=== PATIENT | female | born 1955 | race African-American/Black ===

== ENCOUNTER 2019-04-29 12:35 | Emergency (ER) | payer MEDICARE, OTHER ==
[~2019-04-29] VITALS: Ht 162.6 cm; Wt 55.0 kg
[2019-04-29] MEDS ORDERED: ONDANSETRON HCL 4MG/2ML INJ IV STA (17:24)
[2019-04-29] MEDS ORDERED: MORPHINE SULFATE 4 MG/ML CPJ (NOT FOR IM USE) IV STA (17:24)
[2019-04-29] MEDS ORDERED: ASPIRIN 81MG TABLET PO ONE (17:30)
[2019-04-29 17:35] LABS: BASOPHILS % 0.7 % (0.0-2.0); EOSINOPHILS % 1.4 % (0.0-5.0); HEMATOCRIT. 36.1 % (36.0-48.0); LYMPHOCYTES % 43.8 % (20.0-50.0); MEAN CORPUSCULAR VOLUME 90.3 fL (81.0-99.0); MONOCYTES % 6.9 % (2.0-8.0); NEUTROPHILS % 47.2 % (40.0-76.0); PLATELET 321 x1000/uL (130-400); RED BLOOD CELL COUNT 3.99 mill/uL (4.2-5.4); RED CELL DISTRIBUTION WIDTH 13.1 % (11.6-14.6)
[2019-04-29 17:40] LABS: CHLORIDE 111 mEq/L (98-107)
[2019-04-29 17:43] LABS: PARTIAL THROMBOPLASTIN TIME 26.1 sec (23.4-31.0); PROTHROMBIN TIME 10.2 sec (9.6-11.0)
[2019-04-29 17:44] LABS: ETHANOL BLOOD < 10 mg/dL
[2019-04-29] MEDS ORDERED: MORPHINE SULFATE 4 MG/ML CPJ (NOT FOR IM USE) IV ONE (21:45)
[2019-04-29] MEDS ORDERED: ONDANSETRON HCL 4MG/2ML INJ IV ONE (21:45)
[2019-04-30 00:02] VITALS: BP 95/58
== END 2019-04-30 00:39 | disposition short-term general hospital (02) ==
LOC: ER 12:35 → CANBEDREQ 04-30 00:59
DX: R06.02 Shortness of breath (principal); R11.0 Nausea; R07.89 Other chest pain; R10.13 Epigastric pain; R07.2 Precordial pain; E78.00 Pure hypercholesterolemia, unspecified; R41.82 Altered mental status, unspecified; M79.7 Fibromyalgia; E05.90 Thyrotoxicosis, unspecified without thyrotoxic crisis or storm; F17.200 Nicotine dependence, unspecified, uncomplicated
CPT/HCPCS: 36415; 70450; 71045; 80053; 80320; 83690; 83880; 84484; 85025; 85610; 85730; 93005; 96374; 96375; 96376; 99285; J2270; J2405; G0480

== ENCOUNTER 2025-04-24 08:03 | Emergency (ER) | payer MEDICARE, MEDICAID ==
[~2025-04-24] VITALS: Ht 160 cm; Wt 72.0 kg
[~2025-04-24 08:03] MED LIST: HYDR5TAB13 PO; LACT10SO81 MT; METH-371 PO; METO25TA6 PO
[2025-04-24 08:11] VITALS: O2SAT 100
[2025-04-24 08:43] LABS: BASOPHILS % 0.5 % (0.0-2.0); EOSINOPHILS % 1.4 % (0.0-5.0); HEMATOCRIT. 37.8 % (36.0-48.0); HEMOGLOBIN. 12.3 g/dL (12.0-16.0); LYMPHOCYTES % 36.2 % (20.0-50.0); MEAN PLATELET VOLUME 6.8 fl (7.4-10.4); MONOCYTES % 7.0 % (2.0-8.0); NEUTROPHILS % 54.9 % (40.0-76.0); PLATELET 280 x1000/uL (130-400); RED BLOOD CELL COUNT 4.46 mill/uL (4.2-5.4); RED CELL DISTRIBUTION WIDTH 13.4 % (11.6-14.6)
[2025-04-24 09:04] LABS: CREATININE 0.7 mg/dL (0.6-1.0); UREA NITROGEN BLOOD < 5 mg/dL (9-23)
[2025-04-24 09:06] LABS: TROPONIN I HIGH SENSITIVITY < 4 ng/L (3.0-34)
[2025-04-24 09:09] VITALS: TEMP 37.1
[2025-04-24] MEDS: HYDROCODONE/ACETAMINOPHEN 5/325MG TABLET PO ONE ×2 (09:10→09:11)
[2025-04-24] MEDS: KETOROLAC 30MG/ML VIAL IM ONE (09:11)
[2025-04-24] MEDS ORDERED: IBUP-1455 MT (09:42)
[2025-04-24] MEDS ORDERED: TRAM50TA3 MT (09:42)
[2025-04-24 10:04] VITALS: BP 118/73; PULSE 73; RESP 16; O2SAT 100
== END 2025-04-24 10:05 | disposition home or self-care (01) ==
LOC: ER 08:03
DX: M79.7 Fibromyalgia (principal); R07.9 Chest pain, unspecified; E78.00 Pure hypercholesterolemia, unspecified; E05.90 Thyrotoxicosis, unspecified without thyrotoxic crisis or storm
CPT/HCPCS: 99285; 71045; 80048; 85025; 84484; 36415; 93005; 96372; J1885

== ENCOUNTER 2025-06-05 10:54 | Inpatient (IN) | payer MEDICARE, MEDICAID ==
[~2025-06-05] VITALS: Ht 162.6 cm; Wt 63.5 kg
[~2025-06-05 10:54] MED LIST changes: +IBUP-1455 MT; +TRAM50TA3 MT
[2025-06-05 11:54] LABS: CLARITY URINE CLOUDY (CLEAR); COLOR URINE YELLOW (YELLOW); GLUCOSE URINE NEGATIVE (NEGATIVE); KETONES URINE NEGATIVE (NEGATIVE); LEUKOCYTE ESTERASE URINE TRACE (NEGATIVE); NITRITE URINE NEGATIVE (NEGATIVE); OCCULT BLOOD URINE 2+ (NEGATIVE); PH URINE 5.0 (4.5-8.0); PROTEIN URINE NEGATIVE (NEGATIVE); SPECIFIC GRAVITY URINE 1.024 (1.005-1.030); UROBILINOGEN URINE 0.2 E.U./dL (0.2-1.0)
[2025-06-05 12:10] LABS: BASOPHILS % 1.0 % (0.0-2.0); EOSINOPHILS % 1.4 % (0.0-5.0); HEMATOCRIT. 35.9 % (36.0-48.0); HEMOGLOBIN. 11.7 g/dL (12.0-16.0); LYMPHOCYTES % 43.9 % (20.0-50.0); MEAN PLATELET VOLUME 6.8 fl (7.4-10.4); MONOCYTES % 9.8 % (2.0-8.0); NEUTROPHILS % 43.9 % (40.0-76.0); PLATELET 263 x1000/uL (130-400); RED BLOOD CELL COUNT 4.21 mill/uL (4.2-5.4); RED CELL DISTRIBUTION WIDTH 16.2 % (11.6-14.6)
[2025-06-05 12:18] LABS: CREATININE 0.7 mg/dL (0.6-1.0); UREA NITROGEN BLOOD 9 mg/dL (9-23)
[2025-06-05 12:19] LABS: PROTEIN TOTAL 7.3 g/dL (6.0-8.3)
[2025-06-05 12:20] LABS: ASPARTATE AMINOTRANSFERASE 32 IU/L (<34); BILIRUBIN DIRECT 0.2 mg/dL (<=3.0); BILIRUBIN TOTAL 0.6 mg/dL (0.1-1.0)
[2025-06-05 13:15] LABS: CALCIUM OXALATE CRYSTALS URINE 3+ /lpf; SQUAMOUS EPITHELIAL CELL URINE 2+ /lpf (RARE/1+)
[2025-06-05 13:16] LABS: BACTERIA URINE 1+; RBC URINE 0-2 /hpf (0-2); WBC URINE 0-2 /hpf (0-2)
[2025-06-05] MEDS: ACETAMINOPHEN 500MG TABLET PO ONE (14:28)
[2025-06-05] MEDS: SODIUM CHLORIDE 0.9% 1,000 ML IV ONE (14:28)
[2025-06-05] MEDS: KETOROLAC 15MG/ML VIAL IV ONE (14:32)
[2025-06-05] MEDS: ONDANSETRON HCL 4MG/2ML INJ IV ONE (15:25)
[2025-06-05] MEDS ORDERED: CLONIDINE 0.1MG TABLET PO PRN (16:45)
[2025-06-05] MEDS ORDERED: DOCUSATE SODIUM 100MG CAPSULE PO PRN (16:45)
[2025-06-05] MEDS ORDERED: ACETAMINOPHEN 325MG TABLET PO PRN ×2 (16:45)
[2025-06-05] MEDS: ONDANSETRON HCL 4MG/2ML INJ IV PRN (16:54)
[2025-06-05] MEDS: MORPHINE SULFATE 4 MG/ML INJ (FOR IV/IM USE) IV ONE (16:56)
[2025-06-05] MEDS: CEFTRIAXONE 1GM/50ML 50 ML IV ONE (17:00)
[2025-06-05 17:34] LABS: TROPONIN I HIGH SENSITIVITY < 4 ng/L (3.0-34)
[2025-06-05] MEDS: CEFTRIAXONE 1GM/50ML 50 ML IV NR (18:00)
[2025-06-05 18:24] LABS: VITAMIN B12 SERUM 594 pg/mL (211-911)
[2025-06-05 18:24] LABS: T4 FREE 2.80 ng/dL (0.89-1.76)
[2025-06-05] MEDS: SODIUM CHLORIDE 0.9% 1,000 ML IV SCH (19:23)
[2025-06-05] MEDS: FERROUS SULFATE 325MG TABLET PO SCH (19:23)
[2025-06-05] MEDS: KCL 20MEQ/100ML PREMIX 100 ML IV SCH (19:23)
[2025-06-05] MEDS: TAMSULOSIN HCL 0.4MG SR CAPSULE PO SCH (19:24)
[2025-06-05 20:00] VITALS: BP_SYST 115; BP_SYST 121; BP_DIAS 64; BP_DIAS 76; PULSE 102; PULSE 103; RESP 18; TEMP 36.3; TEMP 36.5; O2SAT 100; O2SAT 98
[2025-06-05 20:35] VITALS: BP 121/64; PULSE 103; RESP 18; TEMP 36.3068
[2025-06-05] MEDS: METOPROLOL TARTRATE 25MG TABLET PO SCH (21:00)
[2025-06-05] MEDS: ENOXAPARIN 40MG/0.4ML SYR SUBCUT SCH (21:00)
[2025-06-05 21:33] VITALS: BP 121/64; PULSE 103; RESP 18; TEMP 36.3; O2SAT 98
[2025-06-05] MEDS ORDERED: IOHEXOL-350 100 ML BOTTLE ONE (21:53)
[2025-06-05] MEDS: KETOROLAC 15MG/ML VIAL IV NR (22:58)
[2025-06-05] MEDS: METHIMAZOLE 5MG TABLET PO SCH (23:00)
[2025-06-05] MEDS ORDERED: CHOL100046 (23:33)
[2025-06-05] MEDS ORDERED: LIP40 MT (23:33)
[2025-06-06] VITALS (7 sets, daily range): BP systolic 100–129; BP diastolic 52–68; PULSE 99–115; RESP 18; TEMP 36.1–37.3; O2SAT 94–100
[2025-06-06 07:57] LABS: TROPONIN I HIGH SENSITIVITY 4 ng/L (3.0-34)
[2025-06-06] MEDS: PANTOPRAZOLE SODIUM 40 MG/VIAL IV SCH (09:34)
[2025-06-06] MEDS: KCL 20MEQ/100ML PREMIX 100 ML IV NR (11:30)
[2025-06-06 11:54] LABS: TRIGLYCERIDE 81.0 mg/dL (0-150)
[2025-06-06 11:55] LABS: LDL CHOLESTEROL 59.0 mg/dL (5-100)
[2025-06-06 15:37] LABS: *AMPHETAMINES SCREEN URINE NEGATIVE (NEGATIVE); *BARBITURATES SCREEN URINE NEGATIVE (NEGATIVE); *BENZODIAZEPINES SCREEN URINE NEGATIVE (NEGATIVE); *COCAINE SCREEN URINE NEGATIVE (NEGATIVE); CANNABINOID URINE SCREEN NEGATIVE (NEGATIVE); ECSTASY MDMA SCREEN URINE NEGATIVE (NEGATIVE); METHADONE URINE SCREEN NEGATIVE (NEGATIVE); OPIATES URINE SCREEN PRESUMPTIVE POSITIVE (NEGATIVE); PHENCYCLIDINE URINE SCREEN NEGATIVE (NEGATIVE)
[2025-06-06 16:06] LABS: GLUCOSE URINE NEGATIVE (NEGATIVE); KETONES URINE NEGATIVE (NEGATIVE); LEUKOCYTE ESTERASE URINE NEGATIVE (NEGATIVE); NITRITE URINE NEGATIVE (NEGATIVE); OCCULT BLOOD URINE 1+ (NEGATIVE); PH URINE 5.0 (4.5-8.0); PROTEIN URINE NEGATIVE (NEGATIVE); SPECIFIC GRAVITY URINE 1.019 (1.005-1.030); UROBILINOGEN URINE 0.2 E.U./dL (0.2-1.0)
[2025-06-06] MEDS: MORPHINE SULFATE 2 MG/ML INJ (NOT FOR IM USE) IV PRN (16:51)
[2025-06-06 17:04] LABS: CLARITY URINE SL HAZY (CLEAR); COLOR URINE STRAW (YELLOW)
[2025-06-06 17:13] LABS: WBC URINE 0-2 /hpf (0-2)
[2025-06-06 17:14] LABS: BACTERIA URINE TRACE; RBC URINE 0-2 /hpf (0-2); SQUAMOUS EPITHELIAL CELL URINE 1+ /lpf (RARE/1+); YEAST URINE 1+
[2025-06-06 17:15] LABS: URIC ACID CRYSTALS URINE 1+ /lpf
[2025-06-06] MEDS: PROPRANOLOL HCL 10MG TABLET PO SCH (21:00)
[2025-06-06] MEDS: IPRATROPIUM/ALBUTEROL 0.5-3(2.5)MG/3ML NEB HHN PRN (21:29)
[2025-06-07] VITALS: BP 110/60; PULSE 100; RESP 18; TEMP 36.7; O2SAT 98
[2025-06-07 04:00] VITALS: BP 123/57; PULSE 108; RESP 18; TEMP 36.7; O2SAT 98
[2025-06-07 08:00] VITALS: BP 127/78; PULSE 101; RESP 18; TEMP 36.3; O2SAT 98
[2025-06-07 10:43] LABS: BASOPHILS % 0.7 % (0.0-2.0); EOSINOPHILS % 1.8 % (0.0-5.0); HEMATOCRIT. 29.2 % (36.0-48.0); HEMOGLOBIN. 9.5 g/dL (12.0-16.0); LYMPHOCYTES % 38.1 % (20.0-50.0); MEAN PLATELET VOLUME 6.9 fl (7.4-10.4); MONOCYTES % 12.6 % (2.0-8.0); NEUTROPHILS % 46.8 % (40.0-76.0); PLATELET 247 x1000/uL (130-400); RED BLOOD CELL COUNT 3.41 mill/uL (4.2-5.4); RED CELL DISTRIBUTION WIDTH 16.1 % (11.6-14.6)
[2025-06-07 10:45] LABS: CREATININE 0.6 mg/dL (0.6-1.0); UREA NITROGEN BLOOD < 5 mg/dL (9-23)
[2025-06-07 10:48] LABS: PHOSPHORUS 3.9 mg/dL (2.5-4.9)
[2025-06-07] MEDS: MAGNESIUM OXIDE 400MG TABLET PO SCH (11:21)
[2025-06-07] MEDS: POTASSIUM CHLORIDE 20MEQ TABLET SR PO NR (11:22)
[2025-06-07 12:00] VITALS: BP 123/67; PULSE 96; RESP 18; TEMP 36.7; O2SAT 98
[2025-06-07 16:00] VITALS: BP 140/77; PULSE 100; RESP 18; TEMP 37.5; O2SAT 98
[2025-06-07 20:00] VITALS: BP 133/60; PULSE 100; RESP 18; TEMP 36.1; O2SAT 100
[2025-06-07] MEDS: PROPRANOLOL HCL 10MG TABLET PO SCH (21:20)
[2025-06-08] VITALS: BP 130/66; PULSE 100; RESP 18; TEMP 36.7; O2SAT 100
[2025-06-08 04:00] VITALS: BP 126/60; PULSE 97; RESP 18; TEMP 36.7; O2SAT 99
[2025-06-08 08:00] VITALS: BP 125/73; PULSE 96; RESP 20; TEMP 36.8; O2SAT 97
[2025-06-08 11:28] VITALS: BP 130/75; PULSE 94; RESP 19; TEMP 36.7; O2SAT 97
[2025-06-08 11:29] VITALS: BP 130/75; PULSE 94; RESP 19; TEMP 98.1
== END 2025-06-08 13:40 | disposition home health service (06) | DRG 694 ==
LOC: ER 10:54 → EDBEDREQTM 16:41 → EDBEDREQSVC 16:41 → EDBEDREQ 16:41 → 8WST 20:39
PROVIDERS: ADMIT Hospitalist; ATTEND Hospitalist
DX: N20.0 Calculus of kidney (principal); D64.9 Anemia, unspecified; E05.90 Thyrotoxicosis, unspecified without thyrotoxic crisis or storm; M06.9 Rheumatoid arthritis, unspecified; E87.6 Hypokalemia; M54.16 Radiculopathy, lumbar region; M79.7 Fibromyalgia; E78.00 Pure hypercholesterolemia, unspecified; R74.8 Abnormal levels of other serum enzymes; K57.30 Diverticulosis of large intestine without perforation or abscess without bleeding; N28.1 Cyst of kidney, acquired; Z90.710 Acquired absence of both cervix and uterus; Z79.899 Other long term (current) drug therapy
CPT/HCPCS: 36415; 74174; 74176; 76700; 80048; 80061; 80076; 80305; 81003; 82550; 82607; 82728; 83540; 83550; 83735; 84100; 84439; 84443; 84484; 84560; 85025; 85044; 87106; 93970; 94640; 99285; J0696; J1650; J1885; J2270; J2405; J2470; J3480; J7030; Q9967